=== PATIENT | male | born 1965 | race Asian ===

== ENCOUNTER 2017-10-12 00:43 | Observation (INO) | payer MEDICAID, OTHER ==
[~2017-10-12] VITALS: Ht 565.3 cm; Wt 78.0 kg
[2017-10-12] VITALS (18 sets, daily range): BP systolic 89–127; BP diastolic 50–77
[2017-10-12] MEDS ORDERED: normal saline 1000ml 1,000 ML IV ONE (00:56)
[2017-10-12] MEDS ORDERED: normal saline 1000ML IV soln IVB ONE (01:00)
[2017-10-12] MEDS ORDERED: morphine 4 MG/ML inj SYRINge IV ONE (01:00)
[2017-10-12] MEDS ORDERED: ondansetron/PF 4mg/2ml inj IV PRN ×2 (01:00→10:55)
[2017-10-12] MEDS ORDERED: ondansetron/PF 4mg/2ml inj IV ONE (01:00)
[2017-10-12] MEDS ORDERED: morphine 4 MG/ML inj SYRINge IV PRN ×4 (01:00→10:55)
[2017-10-12] MEDS ORDERED: acetaminophen 325mg tablet PO PRN (01:00)
[2017-10-12] MEDS ORDERED: temazepam 15mg capsule PO PRN (01:05)
[2017-10-12 01:38] LABS: INR 1.1 INR; PARTIAL THROMBOPLASTIN TIME 26 SECONDS (22-32)
[2017-10-12 01:40] LABS: ALANINE AMINOTRANSFERASE 43 U/L (12-78); ALBUMIN 3.3 G/DL (3.4-5.0); ALKALINE PHOSPHATASE 74 IU/L (46-116); ANION GAP 8 (8-16); ASPARTATE AMINO TRANSFERASE 25 U/L (10-37); BILIRUBIN,TOTAL 2.3 MG/DL (0.1-1.0); BLOOD UREA NITROGEN 14 MG/DL (7-18); BUN/CREATININE RATIO 12.3 (5.4-32.0); CALCIUM 8.2 MG/DL (8.5-10.1); CHLORIDE 106 MMOL/L (99-107); CREATININE 1.14 MG/DL (0.60-1.10); GLUCOSE 113 MG/DL (70-104); LIPASE 125 U/L (73-393); POTASSIUM 3.8 MMOL/L (3.5-5.1); SODIUM 141 MMOL/L (135-145); TOTAL CARBON DIOXIDE 26.8 MMOL/L (24-32); TOTAL PROTEIN 6.7 G/DL (6.4-8.2); eGFR 67 ML/MIN
[2017-10-12 01:57] LABS: BASOPHILS % (AUTO) 0.3 % (0-1); EOSINOPHILS # (AUTO) 0.1 X10'3 (0-0.9); EOSINOPHILS % (AUTO) 0.5 % (0-6); HEMOGLOBIN 15.8 g/dl (14.0-17.9); LYMPHOCYTES % (AUTO) 17.1 % (21-51); MEAN CORPUSCULAR HEMOGLOBIN 31.8 PG (27.0-31.0); MEAN CORPUSCULAR HGB CONC 35.1 % (33.0-36.5); MEAN CORPUSCULAR VOLUME 90.8 FL (78-98); MEAN PLATELET VOLUME 7.9 FL (7.4-10.4); MONOCYTES # (AUTO) 0.6 X10'3 (0-0.9); MONOCYTES % (AUTO) 5.4 % (2-12); NEUTROPHILS # (AUTO) 9.2 X10'3 (1.8-7.7); NEUTROPHILS % (AUTO) 76.7 % (42-75); PLATELET COUNT 184 X10'3 (140-440); RED BLOOD COUNT 4.96 X10'6 (4.70-6.10); RED CELL DISTRIBUTION WIDTH 12.6 % (11.5-14.5); WHITE BLOOD COUNT 11.9 X10'3 (4.5-11.0)
[2017-10-12] MEDS: piperacillin/tazo 4.5gm/100ml 100 ML IV SCH ×3 (02:17→16:36)
[2017-10-12] MEDS: normal saline 1000ml 1,000 ML IV SCH ×3 (02:18→22:52)
[2017-10-12 02:23] LABS: CLARITY,URINE CLEAR (Clear); COLOR,URINE YELLOW (Yellow); GLUCOSE, URINE NEGATIVE (Neg); KETONES,URINE NEGATIVE (Neg); LEUKOCYTE ESTERASE ,URINE NEGATIVE (Neg); NITRITES, URINE NEGATIVE (Neg); OCCULT BLOOD,URINE NEGATIVE (Neg); PROTEIN,URINE NEGATIVE (Neg); UROBILINOGEN,URINE 0.2 E.U/dL (0.2-1.0)
[2017-10-12 02:36] LABS: UA COLLECTION TYPE VOIDED
[2017-10-12] MEDS ORDERED: ringers solution, lacted 1,000 ML IV SCH (10:52)
[2017-10-12] MEDS ORDERED: meperidine/PF 25mg/ml syringe IV PRN ×3 (10:55)
[2017-10-12] MEDS ORDERED: proCHLORperazine 10 MG/2 ml inj IV PRN (10:55)
[2017-10-12] MEDS ORDERED: LIDOcaine 1% 30ml preserv. free vial ONE (12:20)
[2017-10-12] MEDS ORDERED: ROPIVAcaine 0.5% (5mg/ml) 30ml vial ONE (12:20)
[2017-10-12] MEDS ORDERED: glycopyrrolate 0.2mg/ml inj ONE (12:40)
[2017-10-12] MEDS ORDERED: sevoflurane 250ml liquid IH ONE (12:40)
[2017-10-12] MEDS ORDERED: neostigmine methylsulfate 1 MG/ML 10ml vial ONE (12:40)
[2017-10-12] MEDS ORDERED: fentaNYL/PF 50MCG/1 ML 2ML syringe ONE (12:41)
[2017-10-12] MEDS ORDERED: midazolam 2 mg/2 ml injection ONE (12:42)
[2017-10-12] MEDS ORDERED: propofol inj 20 ML IV ONE (12:43)
[2017-10-12] MEDS ORDERED: LIDOcaine 2% (20mg/ml) 5ml vial ONE (12:43)
[2017-10-12] MEDS ORDERED: dexamethasone sod phosphate 4mg/ml inj. ONE (13:18)
[2017-10-12] MEDS ORDERED: ketorolac trometh. 30mg/ml inj. ONE (13:20)
[2017-10-12] MEDS ORDERED: ondansetron/PF 4mg/2ml inj ONE (13:20)
[2017-10-12] MEDS ORDERED: HYDROcodone/acetaminophen 5mg/325mg tablet PO PRN (13:45)
[2017-10-12] MEDS ORDERED: ketorolac trometh. 30mg/ml inj. IV ONE (13:45)
[2017-10-12] MEDS: acetaminophen 325mg tablet PO SCH ×2 (14:00→20:19)
[2017-10-13] VITALS: BP 112/64
[2017-10-13] MEDS: piperacillin/tazo 4.5gm/100ml 100 ML IV SCH ×2 (00:12→07:44)
[2017-10-13] MEDS: acetaminophen 325mg tablet PO SCH ×2 (02:00→07:43)
[2017-10-13 05:18] LABS: BASOPHILS % (AUTO) 0.3 % (0-1); EOSINOPHILS % (AUTO) 0 % (0-6); HEMATOCRIT 42.8 % (42.0-52.0); HEMOGLOBIN 14.9 g/dl (14.0-17.9); LYMPHOCYTES # (AUTO) 1.2 X10'3 (1.1-4.8); LYMPHOCYTES % (AUTO) 10.1 % (21-51); MEAN CORPUSCULAR HEMOGLOBIN 31.6 PG (27.0-31.0); MEAN CORPUSCULAR HGB CONC 34.9 % (33.0-36.5); MEAN CORPUSCULAR VOLUME 90.5 FL (78-98); MEAN PLATELET VOLUME 8.2 FL (7.4-10.4); MONOCYTES # (AUTO) 0.2 X10'3 (0-0.9); MONOCYTES % (AUTO) 1.5 % (2-12); NEUTROPHILS # (AUTO) 10.3 X10'3 (1.8-7.7); NEUTROPHILS % (AUTO) 88.1 % (42-75); PLATELET COUNT 158 X10'3 (140-440); RED BLOOD COUNT 4.72 X10'6 (4.70-6.10); RED CELL DISTRIBUTION WIDTH 13.2 % (11.5-14.5); WHITE BLOOD COUNT 11.7 X10'3 (4.5-11.0)
[2017-10-13 05:30] LABS: ALBUMIN 2.8 G/DL (3.4-5.0); ANION GAP 11 (8-16); BLOOD UREA NITROGEN 14 MG/DL (7-18); BUN/CREATININE RATIO 11.4 (5.4-32.0); CALCIUM 8.6 MG/DL (8.5-10.1); CHLORIDE 108 MMOL/L (99-107); CREATININE 1.23 MG/DL (0.60-1.10); GLUCOSE 134 MG/DL (70-104); POTASSIUM 3.9 MMOL/L (3.5-5.1); SODIUM 142 MMOL/L (135-145); TOTAL CARBON DIOXIDE 22.9 MMOL/L (24-32); eGFR 61 ML/MIN
[2017-10-13] MEDS: normal saline 1000ml 1,000 ML IV SCH (06:58)
[2017-10-13 07:00] VITALS: BP 106/61
[2017-10-13 12:00] VITALS: BP 100/55
== END 2017-10-13 15:15 | disposition home or self-care (01) ==
LOC: ER 00:44 → ED HOLD 00:58 → SUR 3N 02:11
PROVIDERS: ADMIT Hospitalist; ATTEND Hospitalist
DX: K35.80 Unspecified acute appendicitis (principal); E78.00 Pure hypercholesterolemia, unspecified
CPT/HCPCS: 36415; 44970; 71045; 80048; 80053; 81003; 83690; 85025; 85610; 85730; 87070; 96365; 96366; 96375; 96376; 99285; G0378; J1100; J1885; J2001; J2250; J2405; J2543; J2704; J2710; J2795; J3010; J3490; J7030; J7120; 93005; A7000; J2175

== ENCOUNTER 2021-11-17 06:10 | Emergency (ER) | payer MEDICAID ==
[~2021-11-17] VITALS: Ht 162.6 cm; Wt 78.2 kg
[2021-11-17] MEDS ORDERED: metoclopramide 5 mg/ml inj IV ONE (08:20)
[2021-11-17 08:37] LABS: BASOPHILS % (AUTO) 0.6 % (0-1); EOSINOPHILS # (AUTO) 0.1 X10'3 (0-0.9); EOSINOPHILS % (AUTO) 1.9 % (0-6); HEMATOCRIT 49.8 % (42.0-52.0); HEMOGLOBIN 17.3 g/dl (14.0-17.9); LYMPHOCYTES # (AUTO) 2.5 X10'3 (1.1-4.8); MEAN CORPUSCULAR HEMOGLOBIN 31.5 PG (27.0-31.0); MEAN CORPUSCULAR HGB CONC 34.6 g/dL (33.0-36.5); MEAN CORPUSCULAR VOLUME 90.9 FL (78-98); MEAN PLATELET VOLUME 7.2 FL (7.4-10.4); MONOCYTES # (AUTO) 0.4 X10'3 (0-0.9); MONOCYTES % (AUTO) 6.2 % (2-12); NEUTROPHILS # (AUTO) 3.7 X10'3 (1.8-7.7); NEUTROPHILS % (AUTO) 54.3 % (42-75); PLATELET COUNT 218 X10'3 (140-440); RED BLOOD COUNT 5.48 X10'6 (4.70-6.10); RED CELL DISTRIBUTION WIDTH 13.2 % (11.5-14.5); WHITE BLOOD COUNT 6.7 X10'3 (4.5-11.0)
[2021-11-17 08:45] LABS: ALANINE AMINOTRANSFERASE 48 U/L (12-78); ALKALINE PHOSPHATASE 68 IU/L (46-116); ANION GAP 6 (8-16); ASPARTATE AMINO TRANSFERASE 30 U/L (10-37); BILIRUBIN,TOTAL 1.2 MG/DL (0.1-1.0); BLOOD UREA NITROGEN 15 MG/DL (7-18); BUN/CREATININE RATIO 13.3 (5.4-32.0); CALCIUM 8.8 MG/DL (8.5-10.1); CHLORIDE 105 MMOL/L (99-107); CREATININE 1.13 MG/DL (0.60-1.10); GLUCOSE 103 MG/DL (70-104); POTASSIUM 4.4 MMOL/L (3.5-5.1); SODIUM 141 MMOL/L (135-145); TOTAL CARBON DIOXIDE 29.7 MMOL/L (24-32); eGFR 67 ML/MIN
[2021-11-17 09:43] LABS: LIPASE 140 U/L (73-393)
[2021-11-17] MEDS ORDERED: MECL-159 PO (14:09)
[2021-11-17 14:22] VITALS: BP 114/73
== END 2021-11-17 15:28 | disposition home or self-care (01) ==
LOC: ER 06:10
DX: R42 Dizziness and giddiness (principal); E78.00 Pure hypercholesterolemia, unspecified
CPT/HCPCS: 36415; 70450; 71045; 74177; 76700; 80053; 83690; 83880; 84484; 85025; 93005; 96374; 99285; J2765; J3490